=== PATIENT | female | born 1985 | race Caucasian/White ===

== ENCOUNTER → 2024-06-05 | Outpatient (CLI) | payer BC, SELFPAY ==
[2024-06-05 16:26] LABS: Absolute Lymphocyte Count 1.95 X10^3/uL (0.83-4.51); Absolute Neutrophil Count 3.5 X10^3/uL (2.0-7.7); Basophil# 0.03 X10^3/uL; Basophil% 0.5 % (0-1); Eosinophil# 0.06 X10^3/uL; Hematocrit 35.7 % (37-47); Hemoglobin 11.6 g/dL (12.0-15.0); Lymphocyte # 1.95 X10^3/ul (0.83-4.51); Lymphocyte % 33.4 % (19-41); Mean Corp Hgb Conc 32.5 g/dL (32-36); Mean Corpuscular Hgb 29.7 pg (27.0-32.0); Mean Corpuscular Volume 91.3 fL (81-99); Mean Platelet Vol. 10.7 fl (6.2-12.0); Monocyte# 0.25 X10^3/uL; Monocyte% 4.3 % (0-10); NRBC Flagged by Analyzer 0 % (0-5); Neutrophil # 3.53 X10^3/uL (2.7-7.7); Neutrophil % 60.6 % (47-70); Platelet Count 193 K/mm3 (150-450); RBC Distribution Width CV 13.2 % (11.6-14.6); RBC Distribution Width SD 44.1 fl (35.1-43.9); Red Blood Count 3.91 M/mm3 (4.2-5.4); White Blood Count 5.8 K/mm3 (4.4-11.0)
[2024-06-05 16:31] LABS: Erythrocyte Sedimentation Rate < 1 mm/hr (0-30)
[2024-06-05 16:57] LABS: ALB/GLOB Ratio 1.3 RATIO (0.9-2.4); AST(SGOT) 12 U/L (15-37); Alanine Aminotransfer ALT/SGPT 19 U/L (13-56); Albumin, Serum 3.8 g/dL (3.2-5.0); Alkaline Phosphatase 43 U/L (45-117); Anion Gap 6 (5-15); BUN 16 mg/dL (7-18); BUN/Creat Ratio 15.1 RATIO (10-20); CRP < 2.90 mg/L (0.0-3.0); Calcium,Total 8.7 mg/dL (8.5-10.1); Chloride 108 mmol/L (98-107); Creatinine, Serum 1.06 mg/dL (0.55-1.02); EST Glomerular Filtration Rate 61 mL/min (>60); Est Glom Filt Rate - Afr Amer 74 mL/min (>60); Free T3 2.4 pg/mL (2.18-3.98); Glucose 94 mg/dL (74-106); LDH 156 U/L (84-246); Potassium 3.5 mmol/L (3.5-5.1); Protein, Total 6.8 g/dL (6.4-8.2); Sodium Level 139 mmol/L (136-145); T4 Free Direct 0.87 ng/dL (0.76-1.46)
[2024-06-12 00:07] LABS: Anti-Centromere B Ab <0.2 AI (0.0-0.9); Anti-Chromatin <0.2 AI (0.0-0.9); Anti-Jo <0.2 AI (0.0-0.9); Anti-Mitochondrial AB <20.0 Units (0.0-20.0); Anti-Scleroderma-70 AB <0.2 AI (0.0-0.9); Anti-dsDNA Ab <1 IU/mL (0-9); Beef <0.10 kU/L (Class 0); Chocolate <0.10 kU/L (Class 0); Codfish <0.10 kU/L (Class 0); Corn <0.10 kU/L (Class 0); Egg, Whole <0.10 kU/L (Class 0); Milk (Cow) <0.10 kU/L (Class 0); Mussels <0.10 kU/L (Class 0); Peanut <0.10 kU/L (Class 0); Pork <0.10 kU/L (Class 0); RNP Ab <0.2 AI (0.0-0.9); SJOGREN'S Anti-SS-A test < 0.2 AI (0.0-0.9); SJOGREN'S Anti-SS-B test 0.4 AI (0.0-0.9); Salmon <0.10 kU/L (Class 0); Shrimp <0.10 kU/L (Class 0); Smith Ab <0.2 AI (0.0-0.9); Soybean <0.10 kU/L (Class 0); Tuna <0.10 kU/L (Class 0); Wheat <0.10 kU/L (Class 0)
== END | disposition home or self-care (01) ==
PROVIDERS: PCP Nurse Practitioner Family
DX: K59.00 Constipation, unspecified (principal); R14.0 Abdominal distension (gaseous)
CPT/HCPCS: 36415; 80053; 82164; 82390; 82525; 82784; 82785; 83516; 83615; 84165; 84439; 84443; 84481; 85025; 85652; 86003; 86005; 86036; 86140; 86225; 86235; 86255; 86256; 86334; 86671

== ENCOUNTER → 2024-07-02 | Outpatient (CLI) | payer BC, SELFPAY ==
--- NOTE | 2024-07-02 11:55 | NM_ITS ---
CLINICAL: 38-year-old female with history of abdominal bloating and early satiety. SEMI-SOLID PHASE 99m Tc SULFUR COLLOID GASTRIC EMPTYING STUDY COMPARISON: None available FINDINGS: The patient was administered 1.0 mCi of 99m Tc sulfur colloid mixed with oatmeal and consumed per os. Image acquisitions in the anterior-posterior projections were obtained for 60 minutes. There is prompt visualization of the stomach. There is no gastroesophageal reflux identified. The T ? raw data emptying was calculated to be 30.29 minutes, (Normal: 12-56 minutes). NM/Gastric Emptying Study IMPRESSION: 1. NORMAL 99m Tc sulfur colloid semi-solid phase (oatmeal) gastric emptying imaging examination. A. There is normal and preserved semi-solid phase gastric emptying compared to normal controls. (Sonia et al, J Nucl Med Tech 38: 186, 2010). Electronically Signed: Noel Helms DO at 13:52 EDT ,
== END | disposition home or self-care (01) ==
LOC: NM 11:50
PROVIDERS: PCP Nurse Practitioner Family
DX: K59.00 Constipation, unspecified (principal); R14.0 Abdominal distension (gaseous)
CPT/HCPCS: 78264; A9541

== ENCOUNTER 2025-03-16 07:47 | Day surgery (SDC) | payer BC, SELFPAY ==
[2025-03-16] VITALS (8 sets, daily range): BP systolic 111–121; BP diastolic 80–98; PULSE 57–75; RESP 16–18; TEMP 36.8–37.1; O2SAT 98–100; BMI 22.5
[2025-03-16 08:12] LABS: Internal QC Validated? YES +Cl - CLEAR BKGD; Pregnancy, Urine Negative Negative
[2025-03-16] MEDS: Lactated Ringers 1,000 ML 15 ML IV (08:25)
--- NOTE | 2025-03-16 08:26 | PCM.HP.STD ---
HPI - General General Date of Admission: 03/16/25 Date of Service: 03/16/25 Chief Complaint: Bloating and constipation HPI Narrative KARAN ROMO, is a 39 F who presents with chief Complaint: bloating BGI established 9.12.24 w/ constipation, bloating, fatigue and abd pain. Becomes full very quickly and is unable to eat full meals. Has tried fiber supplement and low fodmap diet with some relief of the bloating. *Miralacx and dulcolax started Biochemical work up; hgb L, IBD panel wnl, food allergy wnl, thyroid panel wnl, CRP wnl, ESR wnl, CMP wnl GES 10.9.24; 30 min wnl *Start neomycin and probiotic for bloating OV 12.17.24 Pt feels her constipation has been a little better but still struggling with bloating. Miralax worked when she took it twice a day but eventfully stopped working. BM are sporadic. They can be every day but then not for a few days. Her biggest concern is the constant bloating. She feels there may be soemthing in there. Fiber, probiotic and neomycin were not helpful. [facility] Medical History Wears contact lenses Wears glasses Alcohol use Anemia Back pain Non-smoker Home Medications ?Medication ?Instructions ?Recorded ?Last Taken ?Type magnesium 250 mg tablet 250 mg PO DAILY 03/11/25 Unknown History Allergy/AdvReac Type Severity Reaction Status Date / Time No Known Allergies Allergy Verified 03/16/25 08:10 Surgical History Hx of wisdom tooth extraction H/O dilation and curettage Social History Smoking Status: Never smoker alcohol intake: current alcohol intake frequency: a few times a month substance use type: marijuana what type of physical activity do you participate in: walking frequency: daily ROS Constitutional Constitutional: Denies fatigue, fever(s), poor appetite, weight gain or weight loss Gastrointestinal Gastrointestinal: Denies belching, bloating, change in bowel habits, change in stool character, chewing difficulty, coffee ground emesis, constipation, cramping, diarrhea, dyspepsia, dysphagia, early satiety, excessive flatus, fecal incontinence, heartburn, hematemesis, hematochezia, hemorrhoids, loose stools, melena, nausea, odynophagia, rectal bleeding, tenesmus, vomiting or weight changes Vital Signs Vital Signs Vital Signs: 03/16/25 08:10 03/16/25 08:10 Temperature 98.8 F Temperature Source Temporal Pulse Rate 57 L Respiratory Rate 18 Respiratory Pattern Normal Blood Pressure 120/86 H Blood Pressure Mean 97 Blood Pressure Source Monitor Blood Pressure Position Semi-Fowlers Blood Pressure Location Left Arm Pulse Ox 100 Oxygen Delivery Method Room Air Weight Weight: 127 lb 3.307 oz Body Mass Index (BMI) 22.5 Physical Exam Const alert, oriented x3, no apparent distress and healthy appearing General Appearance: cooperative GI normal to inspection, nondistended, normoactive bowel sounds, soft to palpation, non-tender and non-distended Percussion: normal to percussion Rectal Exam: deferred Results Lab / Micro Data Labs: Laboratory Results - last 24 hr 03/16/25 08:00: Urine Test Negative Assessment & Plan Assessment/Plan (1) Generalized abdominal pain: (2) Abdominal bloating: (3) Constipation, unspecified: QUALIFIERS: Constipation type: unspecified constipation type Qualified Code(s): K59.00 - Constipation, unspecified PLAN: Assessment and Plan Assessment and Plan (1) Abdominal bloating: Status: Acute Plan: This is a 39 yo female pt here today for f/u. Pt continues to have bloating and constipation. Work up has been negative thus far. Her symptoms sound lie IBS. She has concern that there it something in her bowels. She will undergo colonoscopy to assess her lower GI tract. I recommended she try samples of Linzess but she declined. Will consider CT abd/pelvis in the future pending these results -Colonoscopy -Consider CT abd/pelvis -Consider Linzess -f/u after procedure (2) Constipation, unspecified: Status: Acute Qualifiers: Constipation type: unspecified constipation type Qualified Code(s): K59.00 - Constipation, unspecified (3) Generalized abdominal pain: Status: Acute
--- NOTE | 2025-03-16 08:41 | PRE.ANES_ITS ---
ASA Classification* ASA Classification ASA Classification: 2 Assessment & Plan Anesthesia* Anesthesia Assessment Anesthesia Assessment: Discussed sedation and/or anesthesia options, risks, benefits, and alternatives with patient/parents/legal guardian/POA. Questions invited. The patient/parents/legal guardian/POA seems to understand and agrees to proceed with anesthesia plan. Reviewed the physical assessment, medical history, allergy history and patient home medications list prior to surgery/procedure/anesthetic and documented any changes. Performed airway and anesthesia risk assessments. Anesthesia Type Anesthesia Type: MAC History Source History Obtained from:: Patient and Chart Anesthesia Focused Assessment* Temperature: 98.8 F Pulse Rate: 57 Blood Pressure: 120/86 Respiratory Rate: 18 Pulse Ox: 100 Oxygen Delivery Method: Room Air Airway Assessment Mouth opens: >3 cm Mallampati Score: I Teeth Condition: Intact Neck Range of motion (ROM): Full ROM Labs Anesthesia Preop lab: CBC WBC 5.8 K/mm3 (4.4-11.0) 06/05/24 16:06/05/24 RBC 3.91 M/mm3 (4.2-5.4) L 06/05/24 16:06/05/24 Hgb 11.6 g/dL (12.0-15.0) L 06/05/24 16: 4 Hct 35.7 % (37-47) L 06/05/24 16:05 06/05/24 Plt Count 193 K/mm3 (150-450) 06/05/24 16:06/05/24 CHEMISTRY Potassium 3.5 mmol/L (3.5-5.1) 06/05/24 16:06/05/24 Sodium 139 mmol/L (136-145) 06/05/24 16:06/05/24 BUN 16 mg/dL (7-18) 06/05/24 16:06/05/24 Creatinine 1.06 mg/dL (0.55-1.02) H 06/05/24 16:05 Glucose 94 mg/dL (74-106) 06/05/24 16:06/05/24 TSH 1.330 uIU/mL (0.358-3.740) 06/05/24 16:05 09/1 2/24 COAG Urine Test Negative Negative 03/16/25 08:00 03/16/25 Pre-Assessment Diagnosis/Proposed Procedure Planned Operative Procedure(s): COLONOSCOPY Anesthesia History 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 When Was Last Pacemaker Check QUESTION #4 FULL TEXT: You/Your Family Experience fever (hyperthermia) with Anesthesia Last Oral Intake Last Oral intake: Last Oral Intake NPO since 04:45 03/16/25 08:10 Meds taken in AM with sips of No 03/16/25 08:10 water? 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 Female Yes 03/11/25 15:18 HX of Motion Sickness No 03/11/25 15:18 HX of N/V After Surgery No 03/11/25 15:18 Non-Smoker Yes 03/11/25 15:18 Duration of Surgery greater No 03/11/25 15:18 than 60 minutes Number of Risk Factors 2 03/11/25 15:18 PONV Score Moderate Risk 03/11/25 15:18 Height & Weight Height & Weight: Anesthesia: Height & Weight Height 5 ft 3 in 03/16/25 08:10 Weight: 57.7 kg 03/16/25 08:10 Body Mass Index (BMI) 22.5 03/16/25 08:10 Respiratory Assessment Respiratory Assessment - well service pump equipment operator: Respiratory Tract Infection Hx - well service pump equipment operator Hx Respiratory Tract Infection No 03/11/25 15:18 STOP Sleep Apnea STOP Sleep Apnea - well service pump equipment operator: STOP Sleep Apnea - well service pump equipment operator Hx Hypertension No 03/11/25 15:18 Hx Sleep Apnea No 03/11/25 15:18 CPAP BIPAP Do you snore loudly (louder No 03/11/25 15:18 than talking or can be heard Do you often feel tired/ No 03/11/25 15:18 fatigued/ sleepy during daytime? Has anyone observed you stop No 03/11/25 15:18 breathing during sleep? STOP Results Negative 03/11/25 15:18 QUESTION #5 FULL TEXT : Do you snore loudly (louder than talking or can be heard through closed doors)? 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 Specify any problems Hx of Preganancy in last 3 No 03/11/25 15:18 Months Nurse Filling Out Transfusion VCHRISTIN 03/11/25 15:18 & Questions: Date: 03/11/25 03/11/25 15:18 Time: 15:19 03/11/25 15:18 Patient unable to answer at this time (ie. 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: /Reproductive Hx- well service pump equipment operator Hx Now No 03/11/25 15:18 Gestational Age (in weeks): EDC: Hx Hx Para Hx Section SAB No 03/11/25 15:18 Active Medications Active Medications: Current Medications Generic Name Dose Route Start Last Admin Trade Name Freq PRN Reason Stop Dose Admin Lactated Ringer's 1,000 mls @ 15 mls/hr 03/16/25 07:45 03/16/25 08:25 IV 15 mls/hr .Q48H WALI Administration PFSH Medical History Wears contact lenses Wears glasses Alcohol use Anemia Back pain Non-smoker Home Medications ?Medication ?Instructions ?Recorded ?Last Taken ?Type magnesium 250 mg tablet 250 mg PO DAILY 03/11/25 Unk nown History Allergy/AdvReac Type Severity Reaction Status Date / Time No Known Allergies Allergy Verified 03/16/25 08:10 Surgical History Hx of wisdom tooth extraction H/O dilation and curettage Social History Smoking Status: Never smoker alcohol intake: current alcohol intake frequency: a few times a month substance use type: marijuana what type of physical activity do you participate in: walking frequency: daily Review of Systems (Anesthesia) ROS Narrative System reviewed and no additional complaints, except as documented.
--- NOTE | 2025-03-16 09:38 | PCM.POST.ANE ---
Anesthesia: Postop Eval I Current Vital Signs Temperature: 98.2 F Pulse Rate: 67 Blood Pressure: 111/80 Respiratory Rate: 16 Pulse Ox: 100 Assessment Airway patent: Yes Spontaneous unlabored respirations: Yes nausea: No Vomiting: No Anesthesia Complication: No Fluid Hydration Crystalloid volume administer (ml): 500 Total IV fluid infused: 500 Progress Note Anesthesia document: Postop Eval 1 completed: Yes
--- NOTE | 2025-03-16 09:39 | OP.COLON_ITS ---
Patient Name: Xena Donahue Procedure Date: 03/16/2025 9:03 AM Date of : 1985 Age: 39 Procedure: Colonoscopy Indications: Generalized abdominal pain, Change in bowel habits, Constipation, Obstipation Providers: Abdelrahman Fragoso DO Referring MD: Tamir Rodriguez Medicines: Monitored Anesthesia Care Patient Profile: This is a 39 year old female. Refer to note in patient chart for documentation of history and physical. Last Colonoscopy: none. The patient's first colonoscopy is today. Complications: No immediate complications. Procedure: Pre-Anesthesia Assessment: - Prior to the procedure, a History and Physical was performed, and patient medications and allergies were reviewed. The patient is competent. The risks and benefits of the procedure and the sedation options and risks were discussed with the patient. All questions were answered and informed consent was obtained. Patient identification and proposed procedure were verified by the physician in the pre-procedure area. Mental Status Examination: alert and oriented. Airway Examination: normal oropharyngeal airway and neck mobility. Respiratory Examination: clear to auscultation. CV Examination: normal. Prophylactic Antibiotics: The patient does not require prophylactic antibiotics. Prior Anticoagulants: The patient has taken no anticoagulant or antiplatelet agents. ASA Grade Assessment: II - A patient with mild systemic disease. After reviewing the risks and benefits, the patient was deemed in satisfactory condition to undergo the procedure. The anesthesia plan was to use monitored anesthesia care (MAC). Immediately prior to administration of medications, the patient was re-assessed for adequacy to receive sedatives. The heart rate, respiratory rate, oxygen saturations, blood pressure, adequacy of pulmonary ventilation, and response to care were monitored throughout the procedure. The physical status of the patient was re-assessed after the procedure. After I obtained informed consent, the scope was passed under direct vision. Throughout the procedure, the patient's blood pressure, pulse, and oxygen saturations were monitored continuously. The Colonoscope was introduced through the anus and advanced to the cecum, identified by appendiceal orifice and ileocecal valve. The colonoscopy was performed without difficulty. The patient tolerated the procedure well. The quality of the bowel preparation was fair. The ileocecal valve, appendiceal orifice, and rectum were photographed. Scope In: 9:13:54 AM Scope Withdrawal Time 0 hours 6 minutes 49 seconds Scope Out: 9:32:35 AM Total Procedure Duration Time 0 hours 18 minutes 41 seconds Findings: The perianal and digital rectal examinations were normal. Stool was found in the ascending colon, interfering with visualization. Lavage of the area was performed using greater than 500 mL, resulting in clearance with good visualization. Impression: - Preparation of the colon was fair. - Stool in the ascending colon. - No specimens collected. Recommendation: - Discharge patient to home. - Resume previous diet. - Continue present medications. - Repeat colonoscopy in 10 years for screening purposes. Procedure Code(s): --- Professional --- 23987, Colonoscopy, flexible; diagnostic, including collection of specimen(s) by brushing or washing, when performed (separate procedure) CPT copyright 2021 [employer]. All rights reserved. The codes documented in this report are preliminary and upon photo printer review may be revised to meet current compliance requirements. Abdelrahman Fragoso DO 03/16/2025 9:39:18 AM This report has been signed electronically. Number of Addenda: 0 Note Initiated On: 03/16/2025 9:03 AM
--- NOTE | 2025-03-16 09:39 | OP.CCLET_ITS ---
03/16/2025 Tamir Rodriguez Re : Colonoscopy procedure for Xena Murphy Pk This procedure was performed on Sunday, March 16, 2025. My impressions and recommendations are as follows: Impressions : - Preparation of the colon was fair. - Stool in the ascending colon. - No specimens collected. Recommendations : - Discharge patient to home. - Resume previous diet. - Continue present medications. - Repeat colonoscopy in 10 years for screening purposes. My findings are described in the full procedure note, which is enclosed. If I can be of further assistance, please feel free to contact me at . Sincerely, Abdelrahman Fragoso, 03/16/2025 9:39:18 AM This report has been signed electronically.
--- NOTE | 2025-03-16 14:41 | POSTOPAN2_ITS ---
Anesthesia Postop Eval I Sum Postop Eval Completion status Anesthesia document: Postop Eval 1 completed: Yes Anesthesia Postop Eval I Summary Anesthesia Postop Eval I Summary: Anesthesia Postop Eval I: Assessment Summary Airway patent Yes 03/16/25 09:38 [email or web address] Spontaneous unlabored Yes 03/16/25 09:38 [email or web address] respirations Mental status nausea No 03/16/25 09:38 [email or web address] Vomiting No 03/16/25 09:38 [email or web address] Anesthesia Postop Eval I: Fluid Summary Crystalloid volume administer 500 03/16/25 09:38 [email or web address] (ml) Colloids volume administered ( ml) Blood Product volume administered (ml) Total IV fluid infused 500 03/16/25 09:38 [email or web address] Anesthesia Postop Eval I: Summary Notes Anesthesia Complication No 03/16/25 09:38 [email or web address] Anesthesia Complication Comment: Post-operative progress note Anesthesia: Postop Eval II Evaluation Mental status: Awake and Calm Pain Level: 0 nausea: No Vomiting: No Complications Anesthesia Complication: No
--- NOTE | 2025-03-16 14:41 | PCM.POSTANE2 ---
Anesthesia Postop Eval I Sum Postop Eval Completion status Anesthesia document: Postop Eval 1 completed: Yes Anesthesia Postop Eval I Summary Anesthesia Postop Eval I Summary: Anesthesia Postop Eval I: Assessment Summary Airway patent Yes 03/16/25 09:38 FOOD [email or web address] Spontaneous unlabored Yes 03/16/25 09:38 FOOD [email or web address] respirations Mental status nausea No 03/16/25 09:38 FOOD [email or web address] Vomiting No 03/16/25 09:38 FOOD [email or web address] Anesthesia Postop Eval I: Fluid Summary Crystalloid volume administer 500 03/16/25 09:38 FOOD [email or web address] (ml) Colloids volume administered ( ml) Blood Product volume administered (ml) Total IV fluid infused 500 03/16/25 09:38 FOOD [email or web address] Anesthesia Postop Eval I: Summary Notes Anesthesia Complication No 03/16/25 09:38 FOOD [email or web address] Anesthesia Complication Comment: Post-operative progress note Anesthesia: Postop Eval II Evaluation Mental status: Awake and Calm Pain Level: 0 nausea: No Vomiting: No Complications Anesthesia Complication: No
== END 2025-03-16 10:33 | disposition home or self-care (01) ==
LOC: EN 07:48 → AC 07:50
PROVIDERS: Anesthesiology; PCP Nurse Practitioner Family; Referring Provider Nurse Practitioner Family; Visit Provider Internal Medicine Gastroenterology
PROC: 0DJD8ZZ Inspection of Lower Intestinal Tract, Via Natural or Artificial Opening Endoscopic (ICD-10-PCS; CPT 45378; principal; 2025-03-16 08:40)
DX: R14.0 Abdominal distension (gaseous) (principal); K59.00 Constipation, unspecified; R10.84 Generalized abdominal pain
CPT/HCPCS: 45378; 81025; J2405